=== PATIENT | female | born 1960 | race Two or more races ===

== ENCOUNTER 2019-07-16 15:01 | Emergency (ER) | payer MEDICAID, OTHER ==
[~2019-07-16] VITALS: Ht 165.1 cm; Wt 81.0 kg
[~2019-07-16 15:01] MED LIST: LISINOPRIL; METFORMIN
[2019-07-16 16:56] LABS: CLARITY URINE CLEAR (CLEAR); COLOR URINE YELLOW (YELLOW); KETONES URINE NEGATIVE (NEGATIVE); LEUKOCYTE ESTERASE URINE NEGATIVE (NEGATIVE); NITRITE URINE NEGATIVE (NEGATIVE); OCCULT BLOOD URINE NEGATIVE (NEGATIVE); PH URINE 5.5 (4.5-8.0); PROTEIN URINE NEGATIVE (NEGATIVE); SPECIFIC GRAVITY URINE 1.024 (1.005-1.030); UROBILINOGEN URINE 0.2 E.U./dL (0.2-1.0)
[2019-07-16 17:04] LABS: BASOPHILS % 0.4 % (0.0-2.0); EOSINOPHILS % 0.9 % (0.0-5.0); HEMATOCRIT. 37.5 % (36.0-48.0); HEMOGLOBIN. 12.6 g/dL (12.0-16.0); LYMPHOCYTES % 20.7 % (20.0-50.0); MEAN CORPUSCULAR HEMOGLOBIN 27.7 pg (28.0-32.0); MEAN CORPUSCULAR VOLUME 82.2 fL (81.0-99.0); MEAN PLATELET VOLUME 8.7 fl (7.4-10.4); MONOCYTES % 5.1 % (2.0-8.0); NEUTROPHILS % 72.9 % (40.0-76.0); PLATELET 275 x1000/uL (130-400); RED BLOOD CELL COUNT 4.56 mill/uL (4.2-5.4); RED CELL DISTRIBUTION WIDTH 14.1 % (11.6-14.6)
[2019-07-16 17:07] LABS: CHLORIDE 105 mEq/L (98-107)
[2019-07-16 17:08] LABS: OPIATES URINE SCREEN NEGATIVE (NEGATIVE); PHENCYCLIDINE URINE SCREEN NEGATIVE (NEGATIVE)
[2019-07-16 17:09] LABS: *AMPHETAMINES SCREEN URINE NEGATIVE (NEGATIVE); *BARBITURATES SCREEN URINE NEGATIVE (NEGATIVE); *BENZODIAZEPINES SCREEN URINE NEGATIVE (NEGATIVE); *COCAINE SCREEN URINE NEGATIVE (NEGATIVE); CANNABINOID URINE SCREEN NEGATIVE (NEGATIVE); METHADONE URINE SCREEN NEGATIVE (NEGATIVE)
[2019-07-16 17:12] LABS: ETHANOL BLOOD < 10 mg/dL
[2019-07-16 19:13] VITALS: BP 119/76
== END 2019-07-16 19:14 | disposition home or self-care (01) ==
LOC: ER 15:01
DX: R55 Syncope and collapse (principal); R42 Dizziness and giddiness; E11.9 Type 2 diabetes mellitus without complications; I10 Essential (primary) hypertension
CPT/HCPCS: 36415; 80305; 80320; 81003; 82962; 99284; G0480

== ENCOUNTER 2020-06-03 12:11 | Emergency (ER) | payer MEDICAID, OTHER ==
[~2020-06-03] VITALS: Ht 170.2 cm; Wt 86.0 kg
[2020-06-03] MEDS ORDERED: ACETAMINOPHEN 500MG TABLET PO ONE (13:30)
[2020-06-03] MEDS ORDERED: GUAIFENESIN-DM 200MG-20MG/10ML UDC PO ONE (14:00)
[2020-06-03 14:52] VITALS: BP 143/72
== END 2020-06-03 15:28 | disposition home or self-care (01) ==
LOC: ER 13:36
DX: U07.1 COVID-19 (principal); I10 Essential (primary) hypertension; E11.9 Type 2 diabetes mellitus without complications; E78.00 Pure hypercholesterolemia, unspecified
CPT/HCPCS: 71045; 93005; 99285; C9803; U0003

== ENCOUNTER 2020-06-05 20:12 | Inpatient (IN) | payer MEDICAID ==
[~2020-06-05] VITALS: Ht 170.2 cm; Wt 86.2 kg
[2020-06-05] MEDS ORDERED: ACETAMINOPHEN 325MG TABLET PO STA (20:51)
[2020-06-05] MEDS ORDERED: CEFTRIAXONE 1 G PREMIX 50 ML IV ONE (21:00)
[2020-06-05] MEDS ORDERED: ALBUTEROL 6.7GM HFA INHALER ORI ONE ×3 (21:00)
[2020-06-05] MEDS ORDERED: METHYLPREDNISOLONE SOD SUCC 125 MG/2 ML VIAL IV ONE (21:00)
[2020-06-05] MEDS ORDERED: AZITHROMYCIN 500 MG in DEXT 5% WATER 250 ML IV ONE (21:00)
[2020-06-05 22:40] LABS: BASOPHILS % 0.3 % (0.0-2.0); EOSINOPHILS % 0.1 % (0.0-5.0); HEMATOCRIT. 37.1 % (36.0-48.0); HEMOGLOBIN. 12.6 g/dL (12.0-16.0); LYMPHOCYTES % 31.4 % (20.0-50.0); MEAN CORPUSCULAR HEMOGLOBIN 28.2 pg (28.0-32.0); MEAN PLATELET VOLUME 9.3 fl (7.4-10.4); MONOCYTES % 11.4 % (2.0-8.0); NEUTROPHILS % 56.8 % (40.0-76.0); PLATELET 193 x1000/uL (130-400); RED BLOOD CELL COUNT 4.48 mill/uL (4.2-5.4); RED CELL DISTRIBUTION WIDTH 13.6 % (11.6-14.6)
[2020-06-05 22:47] LABS: CHLORIDE 96 mEq/L (98-107)
[2020-06-05 22:51] LABS: INR 0.9; PARTIAL THROMBOPLASTIN TIME 31.9 sec (23.4-31.0); PROTHROMBIN TIME 9.8 sec (9.6-11.0)
[2020-06-06 00:02] LABS: CLARITY URINE CLEAR (CLEAR); COLOR URINE YELLOW (YELLOW); KETONES URINE TRACE (NEGATIVE); LEUKOCYTE ESTERASE URINE 1+ (NEGATIVE); NITRITE URINE POSITIVE (NEGATIVE); OCCULT BLOOD URINE NEGATIVE (NEGATIVE); PH URINE 5.5 (4.5-8.0); PROTEIN URINE TRACE (NEGATIVE); SPECIFIC GRAVITY URINE 1.014 (1.005-1.030); UROBILINOGEN URINE 0.2 E.U./dL (0.2-1.0)
[2020-06-06] MEDS ORDERED: INSULIN LISPRO 100 UNITS/ML SUBCUT SCH ×2 (08:15→12:50)
[2020-06-06] MEDS ORDERED: INSULIN LISPRO(HUMALOG)300 UNIT/3ML VIAL SUBCUT SCH (08:15)
[2020-06-06] MEDS ORDERED: BENZONATATE 100MG CAPSULE PO PRN (08:45)
[2020-06-06] MEDS ORDERED: DEXTROSE 50% WATER 50ML SYRINGE IV PRN (08:45)
[2020-06-06] MEDS ORDERED: DEXAMETHASONE 10 MG/ML VIAL IV NR (08:54)
[2020-06-06] MEDS: BLOOD SUGAR DIAGNOSTIC STRIP TEST SCH ×4 (09:00→20:31)
[2020-06-06] MEDS ORDERED: INSULIN GLARGINE UD 100 UNITS/ML SYR SUBCUT NR (09:30)
[2020-06-06] MEDS: ENOXAPARIN 100MG/ML SYR SUBCUT SCH ×2 (10:10→20:31)
[2020-06-06] MEDS: AZITHROMYCIN 500 MG TABLET PO SCH (10:10)
[2020-06-06] MEDS: ALBUTEROL 6.7GM HFA INHALER ORI SCH ×2 (12:00→21:40)
[2020-06-06 13:00] VITALS: BP 114/63
[2020-06-06] MEDS: INSULIN LISPRO 100 UNITS/ML SUBCUT SCH ×4 (13:10→21:00)
[2020-06-06 16:00] VITALS: BP 131/61
[2020-06-06] MEDS ORDERED: LISI10TA5 MT (16:03)
[2020-06-06] MEDS ORDERED: ATOR10TA69 MT (16:03)
[2020-06-06] MEDS ORDERED: GLIM2TAB30 MT (16:03)
[2020-06-06] MEDS ORDERED: METF-416 MT (16:03)
[2020-06-06 20:00] VITALS: BP 129/75
[2020-06-06] MEDS: CEFTRIAXONE 1,000 MG in DEXTROSE 5% WATER 50 ML IV SCH (20:31)
[2020-06-06] MEDS ORDERED: CEFTRIAXONE 1 G PREMIX 50 ML IV SCH ×2 (21:00)
[2020-06-06] MEDS ORDERED: CEFTRIAXONE 1,000 MG in DEXT 5% WATER 100 ML IV SCH (21:00)
[2020-06-06] MEDS: INSULIN GLARGINE UD 100 UNITS/ML SYR SUBCUT SCH (21:38)
[2020-06-06] MEDS ORDERED: INSULIN GLARGINE UD 100 UNITS/ML SYR SUBCUT SCH (22:00)
[2020-06-07 00:05] VITALS: BP 114/65
[2020-06-07 04:00] VITALS: BP 107/59
[2020-06-07] MEDS: BLOOD SUGAR DIAGNOSTIC STRIP TEST SCH ×4 (05:52→20:01)
[2020-06-07] MEDS: ALBUTEROL 6.7GM HFA INHALER ORI SCH ×4 (06:00→17:50)
[2020-06-07 08:00] VITALS: BP 97/56
[2020-06-07] MEDS: ENOXAPARIN 100MG/ML SYR SUBCUT SCH ×2 (08:47→20:01)
[2020-06-07] MEDS: AZITHROMYCIN 500 MG TABLET PO SCH (08:47)
[2020-06-07] MEDS: INSULIN LISPRO 100 UNITS/ML SUBCUT SCH ×7 (08:48→21:00)
[2020-06-07] MEDS: INSULIN GLARGINE UD 100 UNITS/ML SYR SUBCUT SCH ×2 (09:51→22:00)
[2020-06-07 12:00] VITALS: BP 101/56
[2020-06-07] MEDS ORDERED: INSU100I28 SQ (14:59)
[2020-06-07 16:00] VITALS: BP 112/64
[2020-06-07] MEDS: DEXAMETHASONE 2MG TABLET PO SCH (16:14)
[2020-06-07] MEDS: CEFTRIAXONE 1,000 MG in DEXTROSE 5% WATER 50 ML IV SCH (20:01)
[2020-06-08 00:29] VITALS: BP 121/64
[2020-06-08 04:00] VITALS: BP 111/65
[2020-06-08] MEDS: ALBUTEROL 6.7GM HFA INHALER ORI SCH ×2 (06:00)
[2020-06-08] MEDS: BLOOD SUGAR DIAGNOSTIC STRIP TEST SCH (06:27)
[2020-06-08 08:00] VITALS: BP 110/67
[2020-06-08] MEDS: DEXAMETHASONE 2MG TABLET PO SCH (08:40)
[2020-06-08] MEDS: ENOXAPARIN 100MG/ML SYR SUBCUT SCH (08:41)
[2020-06-08] MEDS: AZITHROMYCIN 500 MG TABLET PO SCH (08:41)
[2020-06-08] MEDS: INSULIN LISPRO 100 UNITS/ML SUBCUT SCH ×2 (08:42)
[2020-06-08 09:32] VITALS: BP 111/65
[2020-06-08] MEDS: INSULIN GLARGINE UD 100 UNITS/ML SYR SUBCUT SCH (10:58)
== END 2020-06-08 11:59 | disposition home or self-care (01) | DRG 720 ==
LOC: ER 20:12 → 7WST 06-06 00:26 → ENRESERV 06-06 11:54
PROVIDERS: ADMIT Internal Medicine; ATTEND Internal Medicine
DX: A41.89 Other specified sepsis (principal); U07.1 COVID-19; J96.00 Acute respiratory failure, unspecified whether with hypoxia or hypercapnia; E44.1 Mild protein-calorie malnutrition; E78.5 Hyperlipidemia, unspecified; E87.1 Hypo-osmolality and hyponatremia; E87.8 Other disorders of electrolyte and fluid balance, not elsewhere classified; I10 Essential (primary) hypertension; J45.909 Unspecified asthma, uncomplicated; J20.8 Acute bronchitis due to other specified organisms; N39.0 Urinary tract infection, site not specified; E11.9 Type 2 diabetes mellitus without complications; Z68.29 Body mass index [BMI] 29.0-29.9, adult
CPT/HCPCS: 36415; 71045; 80053; 81003; 82962; 83605; 83880; 84145; 84484; 85025; 93005; 94640; 96365; 99285; J0456; J0696; J1100; J1650; J1815; J2930; J7060; J8540

== ENCOUNTER 2020-06-12 09:09 | Inpatient (IN) | payer MEDICAID ==
[~2020-06-12] VITALS: Ht 170.2 cm; Wt 84.4 kg
[~2020-06-12 09:09] MED LIST changes: +ATOR10TA69 MT; +GLIM2TAB30 MT; +INSU100I28 SQ; +LISI10TA5 MT; -LISINOPRIL; +METF-416 MT; -METFORMIN
[2020-06-12 10:30] LABS: BG BASE EXCESS 2.8 mmol/L (-2.0-2.0); BG CARBOXYHEMOGLOBIN 0.2 % (0.5-1.5); BG DEOXYHEMOGLOBIN 5.1 % (0.0-5.0); BG FRACTION INSPIRED OXYGEN 21; BG HCO3 ACT 26.6 mmol/L (22.0-26.0); BG METHEMOGLOBIN 0.1 % (0.0-1.5); BG OXYGEN SATURATION 94.9 % (92.0-98.5); BG OXYHEMOGLOBIN 94.6 % (94.0-97.0); BG PCO2 38.1 mmHg (35.0-45.0); BG PH 7.462 (7.350-7.450); BG PO2 70.8 mmHg (75.0-100.0); BG SAMPLE SITE RIGHT RADIAL; BG TOTAL HEMOGLOBIN 13.4 g/dL (12.0-18.0); BG VENT MODE ROOM AIR
[2020-06-12 11:06] LABS: HEMATOCRIT. 42.2 % (36.0-48.0); HEMOGLOBIN. 13.8 g/dL (12.0-16.0); MEAN CORPUSCULAR HEMOGLOBIN 27.7 pg (28.0-32.0); MEAN CORPUSCULAR VOLUME 84.7 fL (81.0-99.0); RED BLOOD CELL COUNT 4.98 mill/uL (4.2-5.4); RED CELL DISTRIBUTION WIDTH 13.5 % (11.6-14.6)
[2020-06-12 11:14] LABS: CHLORIDE 99 mEq/L (98-107)
[2020-06-12 11:19] LABS: D-DIMER 1.18 mg/L FEU (<0.50); PROTHROMBIN TIME 10.9 sec (9.6-11.0)
[2020-06-12 11:23] LABS: CREATINE KINASE 25 IU/L (26-192)
[2020-06-12 11:26] LABS: PLATELET ESTIMATE INCREASED
[2020-06-12 11:28] LABS: PLATELET 365 x1000/uL (130-400)
[2020-06-12 11:41] LABS: CLARITY URINE CLEAR (CLEAR); COLOR URINE YELLOW (YELLOW); KETONES URINE NEGATIVE (NEGATIVE); LEUKOCYTE ESTERASE URINE NEGATIVE (NEGATIVE); NITRITE URINE NEGATIVE (NEGATIVE); OCCULT BLOOD URINE NEGATIVE (NEGATIVE); PH URINE 6.5 (4.5-8.0); PROTEIN URINE NEGATIVE (NEGATIVE); SPECIFIC GRAVITY URINE 1.015 (1.005-1.030)
[2020-06-12] MEDS ORDERED: ONDANSETRON HCL 4MG/2ML INJ IV PRN (13:45)
[2020-06-12] MEDS ORDERED: DEXTROSE 50% WATER 50ML SYRINGE IV PRN (13:45)
[2020-06-12] MEDS ORDERED: ALBUTEROL 6.7GM HFA INHALER ORI PRN (13:45)
[2020-06-12] MEDS ORDERED: CEFTRIAXONE 1,000 MG in DEXTROSE 5% WATER 50 ML IV SCH (14:00)
[2020-06-12] MEDS ORDERED: CEFTRIAXONE SODIUM 1 G/VIAL ONE (14:28)
[2020-06-12] MEDS: AZITHROMYCIN 500 MG TABLET PO SCH (14:51)
[2020-06-12] MEDS: BLOOD SUGAR DIAGNOSTIC STRIP TEST SCH ×2 (17:00→21:00)
[2020-06-12] MEDS: INSULIN LISPRO 100 UNITS/ML SUBCUT SCH ×2 (18:34→21:00)
[2020-06-12 22:00] VITALS: BP 100/54
[2020-06-12] MEDS: ALBUTEROL 6.7GM HFA INHALER ORI SCH (23:00)
[2020-06-13 00:16] VITALS: BP 104/59
[2020-06-13 04:00] VITALS: BP 93/52
[2020-06-13] MEDS: ALBUTEROL 6.7GM HFA INHALER ORI SCH ×4 (05:00→22:41)
[2020-06-13] MEDS ORDERED: SODIUM CHLORIDE 0.9% 500 ML IV SCH (06:15)
[2020-06-13] MEDS: BLOOD SUGAR DIAGNOSTIC STRIP TEST SCH ×4 (06:47→20:58)
[2020-06-13] MEDS ORDERED: SODIUM CHLORIDE 0.9% 1,000 ML IV SCH (07:00)
[2020-06-13 08:00] VITALS: BP 102/52
[2020-06-13] MEDS: INSULIN LISPRO 100 UNITS/ML SUBCUT SCH ×4 (08:10→20:56)
[2020-06-13] MEDS: AZITHROMYCIN 500 MG TABLET PO SCH (08:49)
[2020-06-13 12:00] VITALS: BP 98/70
[2020-06-13] MEDS: FAMOTIDINE 20MG TABLET PO SCH ×2 (12:14→20:58)
[2020-06-13] MEDS: BENZONATATE 100MG CAPSULE PO PRN ×2 (12:14→20:56)
[2020-06-13] MEDS ORDERED: CEFTRIAXONE 1,000 MG in DEXTROSE 5% WATER 50 ML IV SCH (14:00)
[2020-06-13] MEDS: MONTELUKAST SODIUM 10MG TABLET PO SCH (17:23)
[2020-06-13 20:00] VITALS: BP 115/58
[2020-06-13] MEDS: ENOXAPARIN 100MG/ML SYR SUBCUT SCH (20:57)
[2020-06-14] VITALS: BP 105/57
[2020-06-14] MEDS: ACETAMINOPHEN 325MG TABLET PO PRN ×3 (02:56→23:24)
[2020-06-14 04:00] VITALS: BP 100/53
[2020-06-14] MEDS: ALBUTEROL 6.7GM HFA INHALER ORI SCH ×4 (04:55→23:24)
[2020-06-14] MEDS: BLOOD SUGAR DIAGNOSTIC STRIP TEST SCH ×4 (06:40→21:31)
[2020-06-14 08:00] VITALS: BP 105/54
[2020-06-14] MEDS: INSULIN LISPRO 100 UNITS/ML SUBCUT SCH ×4 (08:10→21:52)
[2020-06-14] MEDS: FAMOTIDINE 20MG TABLET PO SCH ×2 (08:41→21:31)
[2020-06-14] MEDS: ENOXAPARIN 100MG/ML SYR SUBCUT SCH ×2 (08:41→21:31)
[2020-06-14] MEDS: BENZONATATE 100MG CAPSULE PO PRN ×2 (11:39→21:51)
[2020-06-14 12:00] VITALS: BP 115/54
[2020-06-14 13:12] LABS: BG BASE EXCESS 0.6 mmol/L (-2.0-2.0); BG CARBOXYHEMOGLOBIN 0.5 % (0.5-1.5); BG DEOXYHEMOGLOBIN 5.6 % (0.0-5.0); BG FRACTION INSPIRED OXYGEN 21; BG HCO3 ACT 24.9 mmol/L (22.0-26.0); BG METHEMOGLOBIN 0.1 % (0.0-1.5); BG OXYGEN SATURATION 94.4 % (92.0-98.5); BG OXYHEMOGLOBIN 93.8 % (94.0-97.0); BG PCO2 38.8 mmHg (35.0-45.0); BG PH 7.425 (7.350-7.450); BG PO2 68.5 mmHg (75.0-100.0); BG SAMPLE SITE LEFT RADIAL; BG VENT MODE ROOM AIR
[2020-06-14] MEDS: PREDNISONE 20MG TABLET PO SCH (13:53)
[2020-06-14 16:00] VITALS: BP 110/54
[2020-06-14] MEDS: MONTELUKAST SODIUM 10MG TABLET PO SCH (17:44)
[2020-06-14 20:00] VITALS: BP 117/61
[2020-06-15] VITALS: BP 125/60
[2020-06-15 04:00] VITALS: BP 103/54
[2020-06-15] MEDS: ALBUTEROL 6.7GM HFA INHALER ORI SCH (04:46)
[2020-06-15] MEDS: BLOOD SUGAR DIAGNOSTIC STRIP TEST SCH (07:14)
[2020-06-15] MEDS: INSULIN LISPRO 100 UNITS/ML SUBCUT SCH (07:25)
[2020-06-15] MEDS: FAMOTIDINE 20MG TABLET PO SCH (09:27)
[2020-06-15] MEDS: ENOXAPARIN 100MG/ML SYR SUBCUT SCH (09:27)
[2020-06-15] MEDS: PREDNISONE 20MG TABLET PO SCH (09:27)
[2020-06-15] MEDS ORDERED: MONT10TA26 MT (11:42)
[2020-06-15 11:43] VITALS: BP 110/75
== END 2020-06-15 12:15 | disposition home or self-care (01) | DRG 137 ==
LOC: ER 09:09 → EDBEDREQ 11:20 → ENRESERV 20:24 → 7WST 22:01
PROVIDERS: ADMIT Internal Medicine; ATTEND Internal Medicine
DX: U07.1 COVID-19 (principal); J96.01 Acute respiratory failure with hypoxia; E44.0 Moderate protein-calorie malnutrition; D68.59 Other primary thrombophilia; J12.89 Other viral pneumonia; E87.1 Hypo-osmolality and hyponatremia; I10 Essential (primary) hypertension; F41.9 Anxiety disorder, unspecified; E11.9 Type 2 diabetes mellitus without complications; J20.8 Acute bronchitis due to other specified organisms; E78.5 Hyperlipidemia, unspecified; J45.901 Unspecified asthma with (acute) exacerbation; E78.00 Pure hypercholesterolemia, unspecified; Z79.84 Long term (current) use of oral hypoglycemic drugs; Z79.899 Other long term (current) drug therapy; Z68.29 Body mass index [BMI] 29.0-29.9, adult
CPT/HCPCS: 36415; 36600; 71045; 80053; 81003; 82375; 82550; 82728; 82805; 82962; 83605; 83615; 84145; 84484; 85025; 85379; 85384; 86140; 93005; 96365; 99285; J0696; J1650; J1815; J7060; J7512

== ENCOUNTER 2024-10-27 23:23 | Emergency (ER) | payer MEDICAID, OTHER ==
[~2024-10-27] VITALS: Ht 162.6 cm; Wt 87.0 kg
[~2024-10-27 23:23] MED LIST changes: +ALBU6.7H3 ORI; +ASPI-1406 PO; +BENZ100C86 PO; +LISI10TA26 MT; -LISI10TA5 MT; +METH4TAB95 MT; +MONT-39 MT
[2024-10-27 23:27] VITALS: BP 167/82; PULSE 78; RESP 16; TEMP 98.7; O2SAT 98
[2024-10-28] MEDS ORDERED: ALBU18HF2 IH (03:42)
[2024-10-28] MEDS ORDERED: ACET-2708 MT (03:42)
[2024-10-28] MEDS ORDERED: AZIT250T12 MT (03:42)
[2024-10-28] MEDS ORDERED: TUSSL MT (03:42)
== END 2024-10-28 03:55 | disposition home or self-care (01) ==
LOC: ER 23:23
DX: J20.9 Acute bronchitis, unspecified (principal); E78.00 Pure hypercholesterolemia, unspecified; I10 Essential (primary) hypertension; E11.9 Type 2 diabetes mellitus without complications; Z79.899 Other long term (current) drug therapy; Z79.84 Long term (current) use of oral hypoglycemic drugs; Z79.4 Long term (current) use of insulin
CPT/HCPCS: 71045; 99283